=== PATIENT | male | born 1960 | race Caucasian/White ===

== ENCOUNTER → 2016-07-24 | Outpatient (CLI) | payer BC | LOC: COL.RAD 14:00 | DX: R07.9 Chest pain, unspecified (principal); D35.02 Benign neoplasm of left adrenal gland ==

== ENCOUNTER → 2018-02-11 | Outpatient (REF) ==
[2018-02-11 17:03] LABS: THYROID STIMULATING HORMONE 1.95 uIU/mL (0.465-4.680)
[2018-02-11 17:05] LABS: PSA-TOTAL 4.7 ng/mL (0-4)
== END ==
LOC: ZLAB.WCH 16:02
PROVIDERS: Internal Medicine
DX: Z01.89 Encounter for other specified special examinations (principal)
CPT/HCPCS: G0103

== ENCOUNTER → 2018-08-12 | Outpatient (REF) | LOC: ZLAB.WCH 16:19 | DX: Z01.89 Encounter for other specified special examinations (principal) | CPT/HCPCS: G0103 ==

== ENCOUNTER 2019-11-13 15:36 | Emergency (ER) | payer BC ==
[~2019-11-13] VITALS: Ht 195.6 cm; Wt 120.5 kg
[2019-11-13 16:49] LABS: COLLECTION METHOD CLEAN CATCH
[2019-11-13 16:52] LABS: BASO # 0.1 (0.0-0.2); BASO % 0.7 % (0.0-2.0); EOS # 0.2 (0.0-0.7); EOS % 2.2 % (0-4.0); GRAN # 5.8 (1.4-6.5); GRAN % 71.9 % (42.2-75.2); HEMOGLOBIN 15.6 g/dl (13.5-18.0); LYMPH # 1.3 (1.2-3.4); LYMPH % 15.8 % (20.0-51.0); MEAN CELL VOLUME 81 fl (80.0-100.0); MEAN CORPUSCULAR HEMOGLOBIN 27 pg (27.0-31.0); MEAN CORPUSCULAR HGB CONC 33 g/dl (33.0-37.0); MEAN PLATELET VOLUME 9.7 fl (7.4-10.4); MONO # 0.7 (0.1-0.6); PLATELET COUNT 320 K/mm3 (130-400); REDCELL DISTRIBUTION WIDTH-CV 13.2 % (11.5-14.5)
[2019-11-13 16:56] LABS: MUCOUS Present /lpf; PH 5 (5-8); SQUAMOUS EPITHELIAL 0-2 /hpf; URINE APPEARANCE Clear; URINE BACTERIA None Seen /hpf; URINE BILIRUBIN Negative (NEGATIVE); URINE BLOOD Negative (NEGATIVE); URINE COLOR Yellow; URINE GLUCOSE Negative (NEGATIVE); URINE KETONE Negative (NEGATIVE); URINE LEUKOCYTE ESTERASE Negative (NEGATIVE); URINE NITRATE Negative (NEGATIVE); URINE PROTEIN(semi-quant) Negative (NEGATIVE); URINE RBC 0-2 /hpf; URINE UROBILINOGEN Negative (NEGATIVE)
[2019-11-13 17:04] LABS: ALBUMIN 4.4 gm/dL (3.5-5.0); BILIRUBIN,TOTAL 0.9 mg/dL (0.0-1.0); CALCIUM 10.1 mg/dL (8.4-10.2); CREATININE, serum 1.12 (0.66-1.25); POTASSIUM 4.3 mmol/L (3.4-5.0); TOTAL PROTEIN 7.4 gm/dL (6.4-8.2)
[2019-11-13] MEDS ORDERED: NORCO 325 MG-51 TAB PO (18:16)
[2019-11-13] MEDS ORDERED: VALIUM 5MG T5 MG/TAB PO (18:16)
[2019-11-13 18:39] VITALS: BP 141/70; PULSE 70; TEMP 98
== END 2019-11-13 18:39 | disposition home or self-care (01) ==
LOC: COL.ER 15:36
PROVIDERS: Emergency Medicine
DX: S32.019A Unspecified fracture of first lumbar vertebra, initial encounter for closed fracture (principal); S32.029A Unspecified fracture of second lumbar vertebra, initial encounter for closed fracture; S32.039A Unspecified fracture of third lumbar vertebra, initial encounter for closed fracture; S32.049A Unspecified fracture of fourth lumbar vertebra, initial encounter for closed fracture; N28.1 Cyst of kidney, acquired; R40.2412 Glasgow coma scale score 13-15, at arrival to emergency department; W12.XXXA Fall on and from scaffolding, initial encounter
CPT/HCPCS: J3010; J3360; J7030; Q9967

== ENCOUNTER → 2022-01-22 | Outpatient (CLI) | payer BC ==
[~2022-01-22] MED LIST: NORCO 325 MG-51 TAB PO; VALIUM 5MG T5 MG/TAB PO
== END ==
LOC: COL.RAD 06:54
DX: Z85.528 Personal history of other malignant neoplasm of kidney (principal)

== ENCOUNTER 2022-07-30 14:48 | Emergency (ER) | payer BC ==
[~2022-07-30] VITALS: Ht 190.5 cm; Wt 117.3 kg
[2022-07-30 15:05] VITALS: BP 152/72; TEMP 97.8
[2022-07-30] MEDS ORDERED: NORCO 325 MG-51 TAB PO (16:28)
[2022-07-30] MEDS ORDERED: CRUTCHES MC (16:33)
[2022-07-30 16:46] VITALS: PULSE 85
== END 2022-07-30 16:46 | disposition home or self-care (01) ==
LOC: COL.ER 14:48
DX: S89.92XA Unspecified injury of left lower leg, initial encounter (principal); R60.0 Localized edema; Z28.310 Unvaccinated for COVID-19; V80.010A Animal-rider injured by fall from or being thrown from horse in noncollision accident, initial encounter

== ENCOUNTER 2022-08-07 14:56 | Emergency (ER) | payer BC ==
[~2022-08-07] VITALS: Ht 190.5 cm; Wt 117.3 kg
[~2022-08-07 14:56] MED LIST changes: +CRUTCHES MC
[2022-08-07 15:03] VITALS: PULSE 81; TEMP 97.7
[2022-08-07 17:02] VITALS: BP 122/88
== END 2022-08-07 17:02 | disposition home or self-care (01) ==
LOC: COL.ER 14:56
DX: S80.12XA Contusion of left lower leg, initial encounter (principal); Z28.310 Unvaccinated for COVID-19; V80.010A Animal-rider injured by fall from or being thrown from horse in noncollision accident, initial encounter